=== PATIENT | male | born 1930 | race Caucasian/White ===

== ENCOUNTER 2017-06-15 12:37 | Outpatient (CLI) | payer MEDICARE ==
--- NOTE | 2017-06-15 14:07 | ULT ---
VENOUS DOPPLER ULTRASOUND OF THE LEFT LOWER EXTREMITY: HISTORY: Left lower extremity pain. TECHNIQUE: Mathews scale ultrasound with color flow and spectral Doppler imaging of the deep venous system of the l eft lower extremity was performed. FINDINGS: There is good flow, compression, and augmentation noted in the left common femoral, femoral, deep fem oral, popliteal, posterior tibial, and greater saphenous veins. IMPRESSION: No evidence of deep vein thrombosis in the left lower extremity. POS: [facility]
--- NOTE | 2017-06-15 14:29 | RAD ---
RADIOGRAPH LEFT ANKLE THREE VIEWS: Date: 06-15-17 History: 86-year-old male with left ankle and left leg swelling. Comparison: None. FINDINGS: There is severe bony hypertrophy at the medial aspect of the ankle mortise, with severe irregularity of the articular surfaces between the lateral aspect of the talus and the medial malleolus; and numer ous tiny subchondral cysts. There is a well corticated moderate sized approximately 15 x 5 mm ossific fragment very close to the very hypertrophic medial aspect of the talus and distal tip of the medial malleolus. No acute fracture lucency is visualized. There are moderate degenerative changes at the l ateral aspect of the ankle mortise. There is osteophytosis throughout the tibiotalar joint with asymm etrical joint space narrowing. There are also degenerative changes at the posterior subtalar joint. T here is mild soft tissue edema or the leg. There is prominent focal osseous thickening of the mid di aphysis of the third metatarsal. IMPRESSION: 1. Severe osteoarthrosis of the left ankle, especially medially. 2. Old healed fracture deformity of third metatarsal shaft. 3. Diffuse osteopenia. POS: [facility]
== END 2017-06-15 12:38 | disposition home or self-care (01) ==
LOC: ULT 12:37
PROVIDERS: ATTEND Internal Medicine
DX: M25.472 Effusion, left ankle (principal); M19.072 Primary osteoarthritis, left ankle and foot; M85.872 Other specified disorders of bone density and structure, left ankle and foot

== ENCOUNTER 2018-02-12 06:21 | Emergency (ER) | payer MEDICARE ==
[2018-02-12 07:29] LABS: #Eosinphils 0.3 thou/uL (0.0-0.7); #Lymphocytes 1.1 thou/uL (1.20-3.40); #Monocytes 0.5 thou/uL (0.11-0.59); #Neutrophils 4.9 thou/uL (1.40-6.50); %Basophils 0.4 % (0.0-1.0); %Lymphocytes 16.5 % (21.0-51.0); %Monocytes 7.8 % (0.0-10.0); %Neutrophils 71.3 % (42.0-75.0); Hemoglobin 12.4 g/dL (14.0-18.0); Mean Corpuscular HGB CONC 32.3 g/dL (32.0-36.0); Mean Corpuscular Volume 93.1 fL (78.0-98.0); Mean Platelet Volume 6.8 fL (7.4-10.4); Platelet Count 255 thou/uL (130-400); Red Blood Cell (RBC) Count 4.13 mill/uL (4.70-6.10); White Blood Cell (WBC) Count 6.8 thou/uL (4.8-10.8)
[2018-02-12 07:51] LABS: ALT (SGPT) 14 U/L (8-55); AST (SGOT) 21 U/L (5-34); Albumin 3.9 g/dL (3.4-4.8); Alkaline Phosphatase 178 U/L (40-150); Anion Gap 14 mmol/L (10-20); BUN (Urea Nitrogen) 35 mg/dL (8.4-25.7); Bilirubin, Total 0.3 mg/dL (0.2-1.2); Calc. Creatinine Clearance 0 mL/min (70-130); Calcium 8.3 mg/dL (7.8-10.44); Carbon Dioxide 22 mmol/L (23-31); Chloride 106 mmol/L (98-107); Estimated GFR-MDRD 37; Globulin 2.2 g/dL (2.4-3.5); Glucose 163 mg/dL (83-110); Potassium 4.5 mmol/L (3.5-5.1); Protein, Total 6.1 g/dL (5.8-8.1); Sodium 137 mmol/L (136-145)
--- NOTE | 2018-02-12 07:53 | RAD ---
RADIOGRAPH CHEST 1 VIEW: HISTORY: 87-year-old male status post acute chest trauma from fall. FINDINGS: There is hyperinflation of the lungs, consistent with COPD. There is no evidence of air space densit y, pneumothorax, or pulmonary edema. The lateral costophrenic angles are sharp. IMPRESSION: 1. No acute pulmonary findings. 2. Emphysema. ashleigh [] POS: [facility]
[2018-02-12 07:55] LABS: CKMB 3.2 ng/mL (0-6.6); Troponin I Less than 0.010 ng/mL (< 0.028)
--- NOTE | 2018-02-12 07:55 | CT ---
CT BRAIN NONCONTRAST: Date: 02/12/18 Time: 0733 hours HISTORY: 87-year-old male status post head trauma from fall. COMPARISON: 08/22/16. FINDINGS: There is no midline shift or any other mass effect. There is no evidence of acute intracranial hemor rhage, large cortical infarct, or extraaxial fluid collection. The calvarium is intact. There is di ffuse parenchymal volume loss. There are low attenuation areas in the white matter. These are nonsp ecific, but in a patient of this age, they are probably chronic ischemic white matter changes due to microvascular atherosclerosis. There is moderate dilation of the lateral, third, and fourth ventricles. There is no significant inte rval change intracranially compared to 08/22/16. Previously, there was a moderate sized right frontal scalp hematoma. Currently, there is a small left frontal scalp contusion. That is the only interval change. IMPRESSION: 1. No acute intracranial findings. 2. Involutional changes and chronic ischemic white matter changes. 3. Ventriculomegaly. This could be on an ex vacuo basis due to the brain involutional changes. Alter natively, this could represent normal pressure hydrocephalus. Clinical correlation is recommended. 4. Small, acute, traumatic left frontal scalp contusion. ashleigh mckeon POS: [facility]
--- NOTE | 2018-02-12 08:02 | CT ---
CT CERVICAL SPINE NONCONTRAST: HISTORY: 87-year-old male status post head trauma from fall. FINDINGS: There are no jumped or perched facets. There is no evidence of acute fracture. The vertebral body h eights are maintained. There is no prevertebral soft tissue swelling. There are degenerative disc c hanges and facet osteoarthrosis. There is diffuse, high grade central spinal canal stenosis throughou t most of the C-spine. There are anterior metallic plate and screws at C3-4. IMPRESSION: 1. Cervical spondylosis. 2. No evidence of acute fracture or acute traumatic subluxation. 3. Diffuse high grade central spinal canal stenosis. 4. Status posterior anterior cervical diskectomy and fusion at C3-4. jn [] POS: [facility]
== END 2018-02-12 08:30 | disposition home or self-care (01) ==
LOC: ERS 06:21
DX: S51.812A Laceration without foreign body of left forearm, initial encounter (principal); S09.90XA Unspecified injury of head, initial encounter; I10 Essential (primary) hypertension; Z87.891 Personal history of nicotine dependence; Z79.899 Other long term (current) drug therapy; W18.30XA Fall on same level, unspecified, initial encounter; Y92.002 Bathroom of unspecified non-institutional (private) residence as the place of occurrence of the external cause
CPT/HCPCS: 36415; 70450; 71045; 72125; 80053; 82553; 84484; 85025; 93005

== ENCOUNTER 2018-02-22 10:21 | Outpatient (CLI) | payer MEDICARE ==
--- NOTE | 2018-02-22 12:08 | PRG ---
DATE OF SERVICE: 02/22/2018 HISTORY: Mr. Anant Trinidad is a very pleasant 87-year-old gentleman who presents to the wound center for evaluation of a large skin tear of the dorsum of the left forearm. Again, the patient is accomp anied by his . The patient's previously stated that 3 days prior to the patient's initial p resentation to the wound center, Mr. Trinidad fell in the morning. She stated that the patient was se en in the emergency department at [facility] and Steri-Strips placed to approx imate the wound edges of the large skin tear of the dorsum of the left forearm. The patient's s tated that one day prior to the patient's initial visit to the wound center, Mr. Trinidad was seen by Dr. Bal and at this time referred to the wound center for further evaluation and treatment. Afte r being seen in the wound center, the skin tear was dressed with Xeroform gauze, Webril, Jadon, and Cob an. OBJECTIVE: VITAL SIGNS: Temperature 98.0, pulse 68, respirations 22, blood pressure 167/76. EXTREMITIES: The large skin tear of the dorsum of the left forearm is healing without complications or any signs of infection. The wound has significantly improved in its appearance. The Steri-Strips were discontinued. No serous or purulent drainage is associated with the wound. No cellulitis of t he left forearm is appreciated. No maceration of the skin of the left forearm is present. No signif icant edema of the left forearm is present on exam today. ASSESSMENT AND PLAN: 1. Large skin tear of the dorsum of the left forearm subsequent to a fall. Xeroform gauze, Webril, Jadon, and Coban will be applied again today to the wound of the dorsum of the left forearm. The patie nt's has been instructed to discontinue the preceding dressings in one week. At this time, any open wounds are to be dressed with Mepilex border. The patient's understands and is in agreemen t with the preceding treatment plan. Mr. Trinidad will be discharged from clinic today with followup on a p.r.n. basis. 2. Renal insufficiency. 3. Hypertension.
== END 2018-02-22 10:22 | disposition home or self-care (01) ==
LOC: WCC 10:21
PROVIDERS: ATTEND Family Medicine
DX: S51.812D Laceration without foreign body of left forearm, subsequent encounter (principal); N28.9 Disorder of kidney and ureter, unspecified; I10 Essential (primary) hypertension; W19.XXXD Unspecified fall, subsequent encounter

== ENCOUNTER 2018-03-20 10:56 | Outpatient (CLI) | payer MEDICARE ==
--- NOTE | 2018-03-20 12:16 | PRG ---
DATE OF SERVICE: 03/20/2018 HISTORY: Mr. Anant Trinidad is a very pleasant 87-year-old gentleman accompanied by his who pres ents to the Wound Center for evaluation of a skin tear of the left forearm. The patient's state s that the dosage of Mr. Trinidad antihypertensive medication was increased and the patient subsequent ly fell. The patient's states that the wound has been present for approximately 1 week. The pa tient has no other complaints today. He denies any fever or chills. PHYSICAL EXAMINATION: VITAL SIGNS: Temperature 97.5, pulse 58, respirations 17, blood pressure 175/74. EXTREMITIES: A skin tear of the left forearm is present. Granulation tissue is present within the w ound margins. No purulent drainage is associated with the wound. No cellulitis of the left forearm is appreciated. No maceration of the skin of the periwound is noted. No significant edema of the le ft forearm is present on exam today. ASSESSMENT AND PLAN: 1. Skin tear of left forearm subsequent to a fall. Xeroform gauze, Webril, Jadon, and Coban will be a pplied today to the wound of the left forearm. The patient and his have been instructed to leav e the dressings applied in clinic today in place for the next week. I will see Mr. Trinidad again 1 w jackson from today. The patient and his understand and are in agreement with the preceding treatmen t plan. 2. Renal insufficiency. 3. Hypertension.
[2018-03-20] MEDS ORDERED: Lidocaine 2% Jelly 5 ML TUBE ONE (14:58)
[2018-03-20] MEDS ORDERED: Sodium Chloride 0.9% 15 ML NEB ONE (14:58)
== END 2018-03-20 10:57 | disposition home or self-care (01) ==
LOC: WCC 10:56
PROVIDERS: ATTEND Family Medicine
DX: S51.812D Laceration without foreign body of left forearm, subsequent encounter (principal); N28.9 Disorder of kidney and ureter, unspecified; I10 Essential (primary) hypertension
CPT/HCPCS: A4218

== ENCOUNTER 2018-03-27 14:19 | Emergency (ER) | payer MEDICARE | END 2018-03-27 15:53 | disposition home or self-care (01) | LOC: SCSER 14:19 | DX: S51.811A Laceration without foreign body of right forearm, initial encounter (principal); S60.221A Contusion of right hand, initial encounter; I10 Essential (primary) hypertension; E03.9 Hypothyroidism, unspecified; E78.00 Pure hypercholesterolemia, unspecified; Z87.891 Personal history of nicotine dependence; W01.0XXA Fall on same level from slipping, tripping and stumbling without subsequent striking against object, initial encounter | CPT/HCPCS: 99283 ==

== ENCOUNTER 2018-03-30 11:19 | Outpatient (CLI) | payer MEDICARE ==
--- NOTE | 2018-03-30 13:32 | PRG ---
DATE OF SERVICE: 03/30/2018 HISTORY: Mr. Anant Trinidad is a very pleasant 87-year-old gentleman accompanied by his who pres ents to the Wound Center for evaluation of a skin tear of the left forearm. Since the patient's last visit, the patient's states Mr. Trinidad fell resulting in two skin tears of the right upper ext remity, one over the right hand and another over the right forearm. The patient was seen in the [facility] Department after his fall and Steri-Strips were utilized to approximate the wound edges of the skin tear over the right hand. The patient has no other complaints today. He denies any fever or ch ills. PHYSICAL EXAMINATION: VITAL SIGNS: Temperature 97.6, pulse 59, respirations 18, blood pressure 182/78. EXTREMITIES: The wound from the skin tear of the left forearm is healing without complications or an y signs of infection. Two skin tears of the right upper extremity are present. One over the right h and and one over the right forearm. No purulent drainage is associated with either wound. No cellul itis of the right forearm is appreciated. No maceration of the skin of the right hand or forearm is present. No significant edema of the right forearm is present on exam today. ASSESSMENT AND PLAN: 1. Skin tears of right upper extremity and of the left forearm subsequent to falls. For the skin te ars of the right upper extremity over the right hand and right forearm, Xeroform gauze, Webril, Jadon, and Coban will be applied to each wound. Xeroform gauze and Mepilex border will be applied to the wo und of the left forearm. The patient and his have been instructed to leave the dressings applie d in clinic today in place for the next week. I will see Mr. Trinidad again in one week. The patient and his understand and are in agreement with the preceding treatment plan. 2. Renal insufficiency. 3. Hypertension.
[2018-03-30] MEDS ORDERED: Lidocaine 2% Jelly 5 ML TUBE ONE (20:41)
[2018-03-30] MEDS ORDERED: Sodium Chloride 0.9% 15 ML NEB ONE (20:41)
== END 2018-03-30 11:20 | disposition home or self-care (01) ==
LOC: WCC 11:19
PROVIDERS: ATTEND Family Medicine
DX: S51.812D Laceration without foreign body of left forearm, subsequent encounter (principal); S51.811D Laceration without foreign body of right forearm, subsequent encounter; S61.411D Laceration without foreign body of right hand, subsequent encounter; N28.9 Disorder of kidney and ureter, unspecified; I10 Essential (primary) hypertension
CPT/HCPCS: 97602; A4218

== ENCOUNTER 2018-04-06 11:18 | Outpatient (CLI) | payer MEDICARE ==
[~2018-04-06 11:18] MED LIST: Lidocaine 2% Jelly 5 ML TUBE ONE; Sodium Chloride 0.9% 15 ML NEB ONE
--- NOTE | 2018-04-06 13:29 | PRG ---
DATE OF SERVICE: 04/06/2018 HISTORY: Mr. Anant Trinidad is a very pleasant 87-year-old gentleman accompanied by his who pres ents to the Wound Center for evaluation of wounds of the right and left upper extremities from skin t ears. The patient has two wounds of the right upper extremity, one over the right hand and another o renay the right forearm. The patient also has a wound of the left forearm. The patient has no complai nts today. He denies any fever or chills. PHYSICAL EXAMINATION: VITAL SIGNS: Temperature 97.4, pulse 65, respirations 18, blood pressure 161/70. EXTREMITIES: The wound from the skin tear of the left forearm is healing without complications or an y signs of infection. Two wounds from skin tears of the right upper extremity are also healing witho ut complications or any signs of infection. One wound is present over the right hand and another ove r the right forearm. No purulent drainage is associated with either wound. No cellulitis of the rig ht forearm is present. No maceration of the skin of the right hand or forearm is present. No signif icant edema of the right forearm is present on exam today. ASSESSMENT AND PLAN: 1. Wounds from skin tears of the right upper extremity and of the left forearm subsequent to falls. For the wounds of the right upper extremity over the right hand and right forearm, Xeroform gauze, W ebril, Jadon, and Coban will be applied to each wound. Xeroform gauze and Mepilex border will be appli ed to the wound of the left forearm. Again, the patient and his have been instructed to leave t he dressings applied in clinic today in place until the patient's followup visit in 1 week. The rissa ent and his understand and are in agreement with the preceding treatment plan. 2. Renal insufficiency. 3. Hypertension.
== END 2018-04-06 11:19 | disposition home or self-care (01) ==
LOC: WCC 11:18
PROVIDERS: ATTEND Family Medicine
DX: S51.802A Unspecified open wound of left forearm, initial encounter (principal); N28.9 Disorder of kidney and ureter, unspecified; I10 Essential (primary) hypertension

== ENCOUNTER 2018-04-13 11:38 | Outpatient (CLI) | payer MEDICARE ==
--- NOTE | 2018-04-13 15:59 | PRG ---
DATE OF SERVICE: 04/13/2018 HISTORY: Mr. Anant Trinidad is a very pleasant 87-year-old gentleman accompanied by his who pres ents to the Wound Center for evaluation of wounds of the right and left upper extremities from skin t ears. The patient has two wounds of the right upper extremity; one over the right hand and another o renay the right forearm. The patient also has a wound of the left forearm. Mr. Trinidad has no complai nts today. He denies any fever or chills. PHYSICAL EXAMINATION: VITAL SIGNS: Temperature 98.0, pulse 54, respirations 18, blood pressure 173/76. EXTREMITIES: The wound from the skin tear of the left forearm is healing without complications or an y signs of infection. Only one wound of the right upper extremity remains. This wound is present ov er the right hand. Granulation tissue is present within the wound margins. No purulent drainage is associated with the wound. No erythema of the skin surrounding the wound is present. No maceration of the skin of the periwound is noted. No significant edema of the right hand is present on exam toakiko joyce. ASSESSMENT AND PLAN: 1. Wounds from skin tears of the right upper extremity and of the left forearm subsequent to falls. As stated above, only 1 wound of the left forearm and one wound over the right hand remain. For the wound of the right hand, dressing changes of Xeroform, 4 x 4s and Kerlix are to be performed every 3 days after cleansing and irrigation. Xeroform gauze and Mepilex border will be applied to the wound of the left forearm. Both wounds have almost healed completely and Mr. Trinidad will be discharged f [facility] clinic today with followup on a p.r.n. basis. The patient's is to continue the dressing victorino nges until both wounds have healed completely. The patient and his understand and are in agreem ent with the preceding treatment plan. 2. Renal insufficiency. 3. Hypertension.
== END 2018-04-13 11:39 | disposition home or self-care (01) ==
LOC: WCC 11:38
PROVIDERS: ATTEND Family Medicine
DX: S51.802D Unspecified open wound of left forearm, subsequent encounter (principal); S61.401D Unspecified open wound of right hand, subsequent encounter; I10 Essential (primary) hypertension; N28.9 Disorder of kidney and ureter, unspecified
CPT/HCPCS: A4218